=== PATIENT | male | born 1955 | race Caucasian/White ===

== ENCOUNTER 2020-07-28 15:40 | Emergency (ER) | payer MEDICARE ==
[2020-07-28 19:41] LABS: RED BLOOD COUNT 5.31 M/UL (4.20-5.50); WHITE BLOOD COUNT 10.2 K/UL (4.5-11.0)
[2020-07-28 20:04] LABS: BUN/CREATININE RATIO 18 (0-10)
== END 2020-07-28 22:16 | disposition left against medical advice (07) ==
LOC: ER1 15:40
PROVIDERS: Emergency Medicine
DX: I63.9 Cerebral infarction, unspecified (principal); R42 Dizziness and giddiness
CPT/HCPCS: 70450; 71045; 80053; 82550; 82553; 83874; 83880; 84484; 85025; 93005; 99284; J2270; J3360